=== PATIENT | male | born 2005 ===

== ENCOUNTER 2024-12-25 10:38 | Emergency (ER) | payer OTHER, SELFPAY ==
[2024-12-25 11:16] VITALS: BP 129/74; PULSE 45; RESP 18; TEMP 37.1; O2SAT 100; BMI 24.1
--- NOTE | 2024-12-25 12:04 | W.ED.HEATRA ---
HPI - Head Injury General: Chief complaint: Headache Stated complaint: concussion at [employer] game Time Seen by Provider: 12/25/24 11:19 Source: patient Mode of arrival: ambulatory Limitations: no limitations History of Present Illness: Patient is a nice 19-year-old male presents to ED today for evaluation of a head injury that he sustained 2 days ago while playing basketball. He states he was accidentally kneed to the back of his head. No LOC. He was reportedly seen by physical therapy as well as Dr. Douglas at the game/time of incident. He was subsequently diagnosed with a concussion. Patient states he sat out the remainder of the game. He states since the incident, he has had a significant headache and trouble sleeping. He is also having some mild sensitivity to light. No visual changes or visual loss. No nausea or vomiting. He is not having any trouble ambulating or speaking. They reportedly contacted Dr. Douglas's office today who recommended coming to the emergency department. MD Complaint: head injury Onset (ago): day(s) Mechanism of Injury: sports related injury Place: other (sports court) Loss of Consciousness: no Location of injury: occipital Severity: severe Severity scale (1-10): 10 Radiation: none Other Injuries: none Associated symptoms: Deny confusion, nausea, neck pain, syncope, vertigo or vomiting Related Data Home Medications ?Medication ?Instructions ?Recorded ?Confirmed ibuprofen 200 mg capsule (Advil 400 mg PO Q6H PRN Fever Or Pain 12/25/24 12/25/24 Liqui-Gel) omega 3 350 mg-dha 235 mg-epa 90 1 cap PO DAILY 12/25/24 12/25/24 mg-fish oil 597 mg capsule,delay rel ([place]-3) Allergies Allergy/AdvReac Type Severity Reaction Status Date / Time No Known Allergies Allergy Verified 12/25/24 11:20 Review of Systems Const: Reports: change in sleep pattern; Denies: fever(s), chills, body aches, fatigue or malaise Eyes: Reports: photophobia; Denies: change in vision or blurry vision ENMT: Denies: tinnitus or nasal discharge Card: Denies: lightheadedness, syncope or pre-syncope GI: Denies: nausea or vomiting Musc: Denies: neck pain Neuro: Reports: headache(s); Denies: numbness in extremities, weakness in extremities, sensory changes, lack of coordination, difficulty walking, dizziness, vertigo, confusion, behavioral changes, Slurred speech present, difficulty communicating thoughts or seizure-like activity Physical Exam Const: COMMON NORMALS: no acute distress, average body habitus, patient oriented x3, no limitations, healthy appearing, alert and well nourished GENERAL APPEARANCE: cooperative ORIENTATION/CONSCIOUSNESS: Yes awake, Yes oriented to person, Yes oriented to place and Yes oriented to time HENMT: COMMON NORMALS: normocephalic and atraumatic HEAD & SCALP: normal to inspection, normocephalic and atraumatic FACE & SINUS: normal facial exam and face symmetric Neck/C-Spine: COMMON NORMALS: full ROM GENERAL: Yes normal visual inspection CERVICAL SPINE: No Cervical spine tenderness Neuro: LETTY COMA SCALE: document GCS findings [place] coma scale eye opening: Spontaneous Letty coma scale verbal response: Orientated Letty coma scale motor response: Obey commands Letty coma scale total score: 15 COMMON NORMALS: patient oriented x3, CN's II-XII intact bilaterally, moves all extremities, no focal motor deficits, no sensory deficits noted and gait normal SENSORIUM/ORIENTATION: Yes alert, Yes oriented to person, Yes oriented to place and Yes oriented to time Course Vital Signs: Vital signs: Vital Signs Temperature 98.7 F 12/25/24 11:16 Pulse Rate 45 L 12/25/24 11:16 Respiratory Rate 18 12/25/24 11:16 Blood Pressure 129/74 12/25/24 11:16 Pulse Oximetry 100 12/25/24 11:16 Oxygen Delivery Me thod Room Air 12/25/24 11:16 MDM - Head Injury Medcial Decision Making CT head unremarkable. Symptoms are consistent with a post-concussion syndrome. We discussed [id number] analgesics to help with his headache. We also discussed other otc pharmaceutical options for his insomnia which is very common following concussion. We discussed following up with Dr. Douglas in the next week or so if symptoms are not improving. Return to ED precautions discussed. Lab Data Radiology Impressions Head CT 12/25/24 12:10 IMPRESSION: 1. No evidence of intracranial hemorrhage or mass effect. 2. No acute intracranial findings. All radiology interpretation(s) finalized by discharge Discharge Plan Discharge Patient Disposition: Home Clinical Impression: Postconcussion syndrome Condition: Stable Prescriptions: No Action ibuprofen [Advil Liqui-Gel] 200 mg Capsule 400 mg PO Q6H PRN (Reason: Fever Or Pain) [place]-3 350 mg-235 mg- 90 mg-597 mg Capsule,Delayed Release(Dr/Ec) 1 cap PO DAILY Discharge Orders: Discharge ED (Routine); Ordered 12/25/24 Ordered By: Mitzy Garcia Referrals: Bogdan Douglas MD [Primary Care Provider] - Patient Instructions: Post Concussion Syndrome (ED), Post-Concussive Syndrome Activity Restrictions/Additional Instructions: As we discussed, please follow-up with Dr. Douglas for further evaluation if symptoms do not begin to improve over the next week. We discussed using Tylenol and/or Ibuprofen to help with headache. We also discussed using Melatonin OR an anti-histamine such as Diphenhydramine OR Doxylamine to help with your insomnia. Print Language: Ukrainian Coding Level of Care Code ED Consulting Nurse for Trevor Simon
--- NOTE | 2024-12-25 12:10 | CT_ITS ---
WS: [id number] CT HEAD TECHNIQUE: Noncontrast CT of the head obtained from the skullbase to the vertex. CLINICAL INFORMATION: ANDRADE, insomnia; post-concussion? head injury 2d ago COMPARISON: None. DLP: 1042.[address] scans at [facility] use at least one of these dose optimization techniques: automated exposure control; mA and/or kV adjustment per patient size (includes targeted exams where dose is matched to clinical indication); or iterative reconstruction. FINDINGS: No evidence of intracranial hemorrhage or mass effect. Ventricular system and basal cisterns are patent. No extra-axial fluid collections. No evidence of mass or mass effect. Normal hitchcock-white differentiation. Paranasal sinuses and mastoid air cells are well aerated. .Normal visualized soft tissues. CT/CT head wo con* [id number] IMPRESSION: 1. No evidence of intracranial hemorrhage or mass effect. 2. No acute intracranial findings.
[2024-12-25 13:00] VITALS: BP 116/73; PULSE 53; O2SAT 100
== END 2024-12-25 13:05 | disposition home or self-care (01) ==
PROVIDERS: Emergency Provider Physician Assistant; PCP Family Medicine
DX: S06.0X0A Concussion without loss of consciousness, initial encounter (principal); F07.81 Postconcussional syndrome; X58.XXXA Exposure to other specified factors, initial encounter; Y93.67 Activity, basketball
CPT/HCPCS: 70450; 99284